=== PATIENT | male | born 1965 ===

== ENCOUNTER → 2024-04-26 11:58 | Outpatient (REF) | payer BC, SELFPAY | LOC: RCS 11:58 | PROVIDERS: ATTENDING PHYSICIAN Internal Medicine Cardiovascular Disease; FAMILY PHYSICIAN Family Medicine | DX: R93.1 Abnormal findings on diagnostic imaging of heart and coronary circulation (principal); I10 Essential (primary) hypertension | CPT/HCPCS: 93017 ==